=== PATIENT | male | born 1945 | race Caucasian/White ===

== ENCOUNTER → 2016-02-15 | Day surgery (SDC) | payer OTHER ==
[2016-02-06 13:24] VITALS: Ht 188 cm; Wt 118.2 kg
[~2016-02-15] VITALS: Ht 188 cm; Wt 118.2 kg
[~2016-02-15] MED LIST: ALLO100T PO; AMLO-110 PO; ASPCH81X PO; ATROPINE SULFATE 0.1 MG/ML 5ML SYR IV PRN; CIPROFLOXACIN / D5W 400 MG IV SCH; DEXAMETHASONE SOD INJ 4 MG/ML VIAL ONE; EpHEDrine SULFATE INJ 50 MG/ML AMP IV PRN; EpHEDrine SULFATE INJ 50 MG/ML AMP ONE; FENTANYL CITRATE INJ 50 MCG/1 ML 2 ML VIAL IV PRN; FENTANYL CITRATE INJ 50 MCG/1 ML 2 ML VIAL ONE; FURO40TA3 PO; LACTATED RINGER'S 1000ML 1,000 ML IV SCH; METO100T14 PO; ONDANSETRON INJ 2 MG/ML 2 ML VIAL IV PRN; ONDANSETRON INJ 2 MG/ML 2 ML VIAL ONE; OXYC-57 PO; POTA1TAB97 PO; PROPOFOL IV EMULSION 10 MG/ML 20 ML VIAL IV ONE; SIMV20TA2 PO; ZOLP10TA PO
--- NOTE | 2016-02-15 08:27 | DIAGNOSTIC IMAGING REPORT ---
KUB HISTORY: N20.0 Nephrolithiasis BE DONE EITHER THE NIGHT BEFORE OR MORNING COMPARISON: KUB 02/06/2016. FINDINGS: The bowel gas pattern is unremarkable. There are no dilated loops of small bowel to suggest an obstruction. Bilateral nephrolithiasis is not significantly changed. No ureteral calculi. Calcifications in the deep pelvis likely represent phleboliths. No pneumoperitoneum or pneumatosis. IMPRESSION: No significant change in the bilateral nephrolithiasis Electronically signed by: Rashard Ortiz M.D. 02/15/2016 8:25 AM Dictated Date/Time: 02/15/2016 8:24 AM
--- NOTE | 2016-02-15 10:13 | History & Physical Bridge - SC ---
H&P Re-Evaluation Bridge Note: I have examined the patient, reviewed the History & Physical and in the interval since the performance of the History & Physical I have noted the following changes of clinical significance: No changes noted
--- NOTE | 2016-02-15 11:08 | [facility] Post Operative Brief Note ---
Immediate Operative Summary Operative Date Feb 15, 2016. Pre-Operative Diagnosis left renal stone Post-Operative Diagnosis same Procedure(s) Performed Left Extracorporeal Shock Wave Lithotripsy Surgeon dr abdalla Heel Curver Surgeon(s) none Estimated Blood Loss 0 Findings stone appeared to fragment Specimens o
--- NOTE | 2016-02-15 11:09 | Discharge Instructions-SurgCtr ---
Discharge Instructions Visit Reason for Visit: Stones;Nephrolithiasis N20.0 Discharge Goals Goal(s): Decrease discomfort, Increase independence Medications Stopped Medications Name(s): Asa 81mg daily, last dose several weeks ago Activity Recommendations Activity Limitations: as noted below (no driving on narcotics) Anesthesia . Post Anesthesia Instructions: If you have had General Anesthesia or IV Sedation: * Do not drive today. * Resume driving when surgeon permits. * Do not make important decisions or sign legal documents today. * Call surgeon for: 1. Temperature elevations greater than 101 degrees F. 2. Uncontrollable pain. 3. Excessive bleeding. 4. Persistent nausea and vomiting. 5. Medication intolerance (nausea, vomiting or rash). * For nausea and vomiting use only clear liquids such as: tea, soda, bouillon until nausea subsides, then gradually increase diet as tolerated. * If you have any concerns or questions, call your surgeon's office. If physician is unavailable and it is an emergency, call 911 or go to the nearest emergency room. . Procedures Procedures Performed: Left Extracorporeal Shock Wave Lithotripsy Medical Emergencies . Who to Call and When: Medical Emergencies: If at any time you feel your situation is an emergency, please call 911 immediately. . Non-Emergent Contact . . "Provider Documentation" section prepared by Edson Walls.
--- NOTE | 2016-02-15 11:10 | Discharge Instructions-SurgCtr ---
Discharge Instructions Visit Reason for Visit: Stones;Nephrolithiasis N20.0 Discharge Discharge Diagnosis / Problem: left renal stone Discharge Goals Goal(s): Decrease discomfort, Increase independence Medications Stopped Medications Name(s): Asa 81mg daily, last dose several weeks ago Activity Recommendations Activity Limitations: as noted below (no driving on narcotics) Anesthesia . Post Anesthesia Instructions: If you have had General Anesthesia or IV Sedation: * Do not drive today. * Resume driving when surgeon permits. * Do not make important decisions or sign legal documents today. * Call surgeon for: 1. Temperature elevations greater than 101 degrees F. 2. Uncontrollable pain. 3. Excessive bleeding. 4. Persistent nausea and vomiting. 5. Medication intolerance (nausea, vomiting or rash). * For nausea and vomiting use only clear liquids such as: tea, soda, bouillon until nausea subsides, then gradually increase diet as tolerated. * If you have any concerns or questions, call your surgeon's office. If physician is unavailable and it is an emergency, call 911 or go to the nearest emergency room. . Diet Recommendations Home Diet: resume previous diet Procedures Procedures Performed: Left Extracorporeal Shock Wave Lithotripsy Pending Studies Studies pending at discharge: no Medical Emergencies . Who to Call and When: Medical Emergencies: If at any time you feel your situation is an emergency, please call 911 immediately. . Non-Emergent Contact . . "Provider Documentation" section prepared by Edson Walls.
--- NOTE | 2016-02-15 11:47 | Anesthesia Progress Nt - [facility] ---
Anesthesia Post Op Note Date & Time Feb 15, 2016 at 11:46 Vital Signs Pain Intensity: 0 Vital Signs Past 12 Hours Date Time Temp Pulse Resp B/P Pulse Ox O2 Delivery O2 Flow Rate FiO2 02/15/16 11:14 36.6 73 24 135/77 97 Diffusion Mask 6 02/15/16 08:33 36.6 62 18 149/89 98 Room Air Notes Mental Status: alert / awake / arousable, participated in evaluation Pt Amnestic to Procedure: Yes Nausea / Vomiting: adequately controlled Pain: adequately controlled Airway Patency, RR, SpO2: stable & adequate BP & HR: stable & adequate Hydration State: stable & adequate Anesthetic Complications: no major complications apparent
[2016-02-15 11:55] VITALS: TEMP 36.4
[2016-02-15 12:25] VITALS: BP 143/89; PULSE 78; O2SAT 98
--- NOTE | 2016-02-15 12:55 | OPERATIVE REPORT ---
DATE OF OPERATION: 02/15/2016 PREOPERATIVE DIAGNOSIS: Left renal stone. POSTOPERATIVE DIAGNOSIS: Same. PROCEDURE PERFORMED: Left ESWL. INDICATIONS: The patient is a 70-year-old male with a history of a left renal stone for lithotripsy. DESCRIPTION OF THE PROCEDURE: The patient was taken to the operating room. Venodyne stockings placed. He was given preoperative antibiotics. He was given general anesthesia. The patient received 2500 shocks up to level 5. There appeared to be a reasonable fragmentation of the stone. At the end of the procedure, the patient was transferred to the recovery room in stable condition. I attest to the content of the Intraoperative Record and any orders documented therein. Any exceptio ns are noted below.
== END | disposition home or self-care (01) ==
LOC: X.SURG 08:19
PROVIDERS: ATTEND Urology
DX: N20.0 Calculus of kidney (principal); I10 Essential (primary) hypertension; M10.9 Gout, unspecified; I25.2 Old myocardial infarction; Z98.890 Other specified postprocedural states; Z87.442 Personal history of urinary calculi

== ENCOUNTER → 2016-02-29 | Day surgery (SDC) | payer OTHER ==
[2016-02-28 11:41] VITALS: Ht 188 cm; Wt 118.2 kg
[~2016-02-29] VITALS: Ht 188 cm; Wt 118.2 kg
[~2016-02-29] MED LIST changes: -CIPROFLOXACIN / D5W 400 MG IV SCH; +CIPROFLOXACIN 400MG / D5W IV SCH; +EpHEDrine SULFATE 50MG/5ML SYR ONE; -EpHEDrine SULFATE INJ 50 MG/ML AMP ONE; +LIDOCAINE HCL 2% 2 ML VIAL (20MG/ML) ONE; +MIDAZOLAM HCL 1 MG/ML 2ML VIAL ONE; +OXYCODONE/ACETAMINOPHEN 5-325 TAB PO PRN
--- NOTE | 2016-02-29 12:01 | Discharge Instructions-SurgCtr ---
Discharge Instructions Visit Reason for Visit: Stones Discharge Discharge Diagnosis / Problem: stones Discharge Goals Goal(s): Therapeutic intervention Medications Stopped Medications Name(s): ASA 81 mg hasnt taken in 2 months since ESWLs started Activity Recommendations Activity Limitations: resume your previous activity (take it easy today) Anesthesia . Post Anesthesia Instructions: If you have had General Anesthesia or IV Sedation: * Do not drive today. * Resume driving when surgeon permits. * Do not make important decisions or sign legal documents today. * Call surgeon for: 1. Temperature elevations greater than 101 degrees F. 2. Uncontrollable pain. 3. Excessive bleeding. 4. Persistent nausea and vomiting. 5. Medication intolerance (nausea, vomiting or rash). * For nausea and vomiting use only clear liquids such as: tea, soda, bouillon until nausea subsides, then gradually increase diet as tolerated. * If you have any concerns or questions, call your surgeon's office. If physician is unavailable and it is an emergency, call 911 or go to the nearest emergency room. . Instructions / Follow-Up Instructions / Follow-Up MEDICATIONS: Resume previous medications unless instructed otherwise by your surgeon. Resume pre-ESWL medication except for aspirin, coumadin or other blood thinners. __ Toradol 10 mg every 6 hours for initial pain. __ Lortab 5 mg 1-2 every 4 hours for pain. _x_ Percocet 5 mg 1-2 every 4 hours for pain. __ Macrodantin 50 mg x 3 a day. __ Flomax 1 tab daily one half (1/2) hour after supper. SPECIAL CARE INSTRUCTIONS: 1. Get KUB (x-ray) _x_ day before or day of office visit and bring x-ray to office __ get x-ray 2 days before and tell office you are getting x-rays when you call for the appointment. 2. Strain ALL urine. 3. Please call if you have a fever, chills, severe pain, or constant dribbling of urine. 4. Office phone number . FOLLOW UP VISIT: Please call the office to schedule a follow-up appointment at . Diet Recommendations Home Diet: resume previous diet Pending Studies Studies pending at discharge: no Medical Emergencies . Who to Call and When: Medical Emergencies: If at any time you feel your situation is an emergency, please call 911 immediately. . Non-Emergent Contact Non-Emergency issues call your: Urologist . . "Provider Documentation" section prepared by Jaime Jordan. [facility] Monitoring Program Search Results: patient reviewed within database
--- NOTE | 2016-02-29 12:05 | [facility] Post Operative Brief Note ---
Immediate Operative Summary Operative Date Feb 29, 2016. Pre-Operative Diagnosis right renal stone Post-Operative Diagnosis same Procedure(s) Performed right eswl Surgeon robyn Process Validation Engineer Surgeon(s) none Estimated Blood Loss none Findings bilateral stones Specimens none
--- NOTE | 2016-02-29 12:46 | Anesthesia Progress Nt - [facility] ---
Anesthesia Post Op Note Date & Time Feb 29, 2016 at 12:46 Vital Signs Pain Intensity: 0 Vital Signs Past 12 Hours Date Time Temp Pulse Resp B/P Pulse Ox O2 Delivery O2 Flow Rate FiO2 02/29/16 10:48 36.8 62 18 151/85 95 Room Air Notes Mental Status: alert / awake / arousable, participated in evaluation Pt Amnestic to Procedure: Yes Nausea / Vomiting: adequately controlled Pain: adequately controlled Airway Patency, RR, SpO2: stable & adequate BP & HR: stable & adequate Hydration State: stable & adequate Anesthetic Complications: no major complications apparent
[2016-02-29 13:26] VITALS: TEMP 37.1
[2016-02-29 13:50] VITALS: BP 153/82; PULSE 77; O2SAT 95
--- NOTE | 2016-03-04 12:59 | OPERATIVE REPORT ---
DATE OF OPERATION: 02/29/2016 PREOPERATIVE DIAGNOSIS: Right renal calculus. POSTOPERATIVE DIAGNOSIS: Same. PROCEDURE: Extracorporeal shockwave lithotripsy. SURGEON: Dr. Schafer. FINDINGS: KUB showed stone right kidney. ANESTHESIA: General. DRAINS: None. COMPLICATIONS: None. SPECIMENS: None. INDICATIONS: The patient is a 70-year-old white male with a right renal stone being brought in for ESWL. DETAILS OF PROCEDURE: The patient was brought to the litho suite. He was correctly identified and the stone was visualized on his most recent x-rays. After the correct time out was performed the patient was positioned over the therapy head. An adequate level of anesthesia was administered. The extracorporeal shockwave lithotripsy treatment was then commenced. Please see the [facility] sheet for complete treatment summary. After completion of the procedure the patient was taken to the recovery room in stable condition. I attest to the content of the Intraoperative Record and any orders documented therein. Any exceptio ns are noted below.
== END | disposition home or self-care (01) ==
LOC: X.SURG 10:29
PROVIDERS: ATTEND Urology
DX: N20.0 Calculus of kidney (principal); I25.2 Old myocardial infarction; I25.10 Atherosclerotic heart disease of native coronary artery without angina pectoris; I10 Essential (primary) hypertension; E66.9 Obesity, unspecified; Z79.82 Long term (current) use of aspirin; Z95.1 Presence of aortocoronary bypass graft; Z98.890 Other specified postprocedural states; Z83.3 Family history of diabetes mellitus; Z80.9 Family history of malignant neoplasm, unspecified; Z84.1 Family history of disorders of kidney and ureter

== ENCOUNTER → 2016-03-19 | Outpatient (CLI) | payer OTHER ==
[~2016-03-19] MED LIST changes: -ATROPINE SULFATE 0.1 MG/ML 5ML SYR IV PRN; -CIPROFLOXACIN 400MG / D5W IV SCH; -DEXAMETHASONE SOD INJ 4 MG/ML VIAL ONE; -EpHEDrine SULFATE 50MG/5ML SYR ONE; -EpHEDrine SULFATE INJ 50 MG/ML AMP IV PRN; -FENTANYL CITRATE INJ 50 MCG/1 ML 2 ML VIAL IV PRN; -FENTANYL CITRATE INJ 50 MCG/1 ML 2 ML VIAL ONE; -LACTATED RINGER'S 1000ML 1,000 ML IV SCH; -LIDOCAINE HCL 2% 2 ML VIAL (20MG/ML) ONE; -MIDAZOLAM HCL 1 MG/ML 2ML VIAL ONE; -ONDANSETRON INJ 2 MG/ML 2 ML VIAL IV PRN; -ONDANSETRON INJ 2 MG/ML 2 ML VIAL ONE; -OXYCODONE/ACETAMINOPHEN 5-325 TAB PO PRN; -PROPOFOL IV EMULSION 10 MG/ML 20 ML VIAL IV ONE
--- NOTE | 2016-03-19 13:49 | DIAGNOSTIC IMAGING REPORT ---
KUB CLINICAL HISTORY: Nephrolithiasis. FINDINGS: 2 AP supine abdominal radiograph are compared to study dated 02/25/2016. There is a nonobstructed abdominal bowel gas pattern. Cholecystectomy clips are partially visualized. There are numerous bilateral nonobstructing renal calculi. The largest on the right is in the lower pole and measures up to 8 mm. The largest stone on the left measures up to 11 mm. There is a questionable calcification projecting over the left proximal ureter below the left transverse process of L2. This measures 11 mm in length. Numerous phleboliths are identified in the pelvis. The skeletal structures are osteopenic. Lumbosacral spondylosis and scoliosis is observed. IMPRESSION: 1. There are numerous bilateral nonobstructing renal calculi as above. 2. Question an 11 mm calculus projecting over the left proximal ureter. Correlate clinically for left flank pain. 3. Nonobstructed abdominal bowel gas pattern. Electronically signed by: Ranjit Chamberlain M.D. 03/19/2016 1:48 PM Dictated Date/Time: 03/19/2016 1:45 PM
== END | disposition home or self-care (01) ==
LOC: C.RAD 11:23
PROVIDERS: ATTEND Urology
DX: N20.0 Calculus of kidney (principal)